=== PATIENT | female | born 1980 | race Caucasian/White ===

== ENCOUNTER 2016-09-29 19:57 | Inpatient (IN) | payer MEDICAID ==
[~2016-09-29] VITALS: Ht 157.5 cm; Wt 117.0 kg
[2016-09-29] MEDS ORDERED: DINOPROSTONE 10 MG INSERT-LEAVE FOR 12 HOURS VAGINAL ONE (21:30)
[2016-09-29] MEDS: LACTATED RINGER'S 1000 ML IV SCH (21:30)
[2016-09-29] MEDS ORDERED: NS 500 ML BOLUS IV PRN (21:30)
[2016-09-29] MEDS ORDERED: MINERAL OIL 10 ML VIAL TOPICAL PRN (21:30)
[2016-09-29] MEDS ORDERED: LACTATED RINGER'S 1000 ML BOLUS IV PRN (21:30)
[2016-09-29] MEDS ORDERED: NS 1000 ML OTHER PRN (21:30)
[2016-09-29] MEDS ORDERED: NS 1000 ML IV PRN (21:30)
[2016-09-29] MEDS ORDERED: OXYTOCIN 30 UNITS 500ML PREMIX IV ONE (21:30)
[2016-09-29] MEDS ORDERED: LIDOCAINE HCL 1% 50 ML VIAL I-DERMAL PRN (21:30)
[2016-09-29] MEDS ORDERED: LIDOCAINE HCL 1% 50 ML VIAL INFIL PRN (21:30)
[2016-09-29] MEDS ORDERED: CITRIC ACID-SODIUM CITRATE LIQ 30 ML UDC PO SCH (21:30)
[2016-09-29 22:23] VITALS: RESP 18; TEMP 98.4
[2016-09-29 22:44] LABS: BACTERIA, URINE RARE /hpf; BLOOD, URINE NEG (NEG); COMMENT (UR) CULT NOT INDICATED; CULTURE IF INDICATED CULT NOT INDICATED; GLUCOSE,URINE NEG (NEG); KETONE, URINE NEG (NEG); MUCUS URINE FEW /lpf (OCC); NITRITE,URINE NEG (NEG); SQUAMOUS EPITHELIAL CELL URINE 7 /hpf (0-5); URINE COLOR YELLOW (YELLW/STRAW)
[2016-09-29] MEDS ORDERED: ZOLPIDEM TARTRATE 5 MG TAB PO PRN (22:45)
[2016-09-29 22:49] LABS: AUTOMATED NEUTROPHIL # 9.6 TH/MM3 (1.8-7.7); BASOPHIL % 0.1 % (0.0-2.0); EOSINOPHIL # 0.1 TH/MM3 (0-0.4); EOSINOPHIL % 0.5 % (0.0-4.0); HEMATOCRIT 34.3 % (35.0-46.0); HEMO FLAGS DIFF FINAL; LYMPH % 14.9 % (9.0-44.0); LYMPHOCYTE # 1.8 TH/MM3 (1.0-4.8); MEAN CELL VOLUME 86.2 FL (80.0-100.0); MEAN CORPUSCULAR HEMOGLOBIN 29.7 PG (27.0-34.0); MEAN CORPUSCULAR HGB CONC 34.4 % (32.0-36.0); MONO % 5.7 % (0.0-8.0); NEUT % 78.8 % (16.0-70.0); PLATELET COUNT 337 TH/MM3 (150-450); RED BLOOD COUNT 3.97 MIL/MM3 (4.00-5.30); RED CELL DISTRIBUTION WIDTH 14.2 % (11.6-17.2); WHITE BLOOD COUNT 12.2 TH/MM3 (4.0-11.0)
[2016-09-29 23:00] VITALS: BP 102/75; PULSE 90
--- NOTE | 2016-09-29 23:04 | HHI.HP ---
HPI Chief Complaint iol Date Seen: September 29, 2016 Travel History International Travel<30 Days: No Contact w/Intl Traveler<30Days: No Known Affected Area: No History of Present Illness HPI Pt is a 36 yo G1 with iup at 40w1d admitted for iol. Pt desires iol as she is term and family is coming into town this weekend to help. She reports good movement, irreg contractions, no vb or lof. BPP in office today is 8/8. PNC started at 11 wk, wt gain of 57 pounds, normal 1 hr gct. Pt is morbidly obese; had growth u/s at 34w6d that measured AGA. h/o //mj use, uds negative in the third trimester. : 1 History Past Medical History Narrative Medical depression, no meds during morbid obesity Social History Alcohol Use: No Tobacco Use: No Substance Abuse: No (prior mj use) Allergies-Medications (Allergen,Severity, Reaction): Coded Allergies: No Known Allergies (Unverified , 09/29/16) Review of Systems General / Constitutional: No: Fever, Weight Gain, Chills, Other Eyes: No: Diploplia, Blurred Vision, Visual changes, Pain, Photophobia HENT: No: Headaches, Vertigo, Lightheadedness Cardiovascular: No: Irregular Rhythm, Chest Pain or Discomfort, Palpitations, Tachycardia, Syncope, Varicosities, Edema, Cyanosis Respiratory: No: Cough, Short of Breath, Other Gastrointestinal: No: Nausea, Vomiting, Diarrhea Genitourinary: No: Decreased Urinary Output, Oliguria Musculoskeletal: No: Limited ROM, Weakness, Cramping, Edema, Pain Skin: No Rash, No Itching, No Dryness, No Lumps, No Change in Pigmentation, No Change in Nails, No Alopecia, No Lesions Neurologic: No: Weakness, Dizziness, Syncope, Focal Abnormalities, Coordination Problem, Headache, Slurred Speech, Seizures Psychiatric: No: Depression, Suicidal Ideations, Homicidal Ideation Endocrine: No: Heat Intolerance, Cold Intolerance, Polydipsia, Polyuria, Other Physical Exam Vital Signs Date Time Temp Pulse Resp B/P Pulse Ox O2 Delivery O2 Flow Rate FiO2 09/29/16 22:23 98.4 18 Narrative GENERAL: Well-nourished, well-developed patient. SKIN: Warm and dry. HEAD: Normocephalic and atraumatic. EYES: No scleral icterus. No injection or drainage. ENT: No nasal drainage noted. Mucous membranes pink. Airway patent. NECK: Supple, trachea midline. No JVD. CARDIOVASCULAR: Regular rate and rhythm without murmurs, gallops, or rubs. RESPIRATORY: Breath sounds equal bilaterally. No accessory muscle use. ABDOMEN/GI: Abdomen soft, non-tender, bowel sounds present, no rebound, no guarding Gravid to [-] weeks size Fundal Height: ob GENITOURINARY: External Genitalia: intact and normal in appearance BUS glands: [-] Cervix: cl/th/high, medium consistency, posterior Dilatation: [-] Effacement: [-] Station: [-] / Presentation: [facility] Membranes: [intact Uterine Contractions: [-] FHT's: bpp 8/8 in office today Decels: [-] EXTREMITIES: No cyanosis or edema. BACK: Nontender without obvious deformity. No CVA tenderness. NEUROLOGICAL: Awake and alert. Motor and sensory grossly within normal limits. Five out of 5 muscle strength in all muscle groups. Normal speech. Data Data Vital Signs Reviewed: Yes Orders Admit To Inpatient (09/29/16 ) Diet Liquid (09/30/16 Breakfast) ^ Labor Induction (09/29/16 21:20) ^ Vaginal Insert (09/29/16 21:20) ^ Vaginal Lavage (09/29/16 21:20) Heart (09/29/16 21:20) Admit To Inpatient (09/29/16 ) Code Status (09/29/16 21:20) Vital Signs (Adult) .Per protocol (09/29/16 21:20) Heart (09/29/16 21:20) Amnioinfusion (09/29/16 21:20) Urinary Catheter Management .ONCE (09/29/16 21:20) Complete Blood Count With Diff (09/29/16 21:20) Hold Clot (09/29/16 21:20) Abo/Rh Blood Type (09/29/16 21:20) Urinalysis - C+S If Indicated (09/29/16 21:20) Resp Oxygen Non Rebreathe Mask (09/29/16 ) ^ Epidural / Intrathecal Infus (09/29/16 21:20) Dinoprostone Vag Insert (Cervidil Vag In (09/29/16 21:30) Lactated Ringer's 1000 Ml Inj (Lr 1000 M (09/29/16 21:30) Sodium Chlor 0.9% 1000 Ml Inj (Ns 1000 M (09/29/16 21:30) Lactated Ringer's 1000 Ml Inj (Lr 1000 M (09/29/16 21:30) Lactated Ringer's 1000 Ml Inj (Lr 1000 M (09/29/16 21:30) Sodium Chlorid 0.9% 500 Ml Inj (Ns 500 M (09/29/16 21:30) Sodium Chlor 0.9% 1000 Ml Inj (Ns 1000 M (09/29/16 21:30) Lidocaine 1% Inj (50 Ml) (Xylocaine 1% I (09/29/16 21:30) Citric Acid-Sodium Citrate Liq (Bicitra (09/29/16 21:30) Fentanyl Inj (Fentanyl Inj) (09/29/16 21:30) Fentanyl Inj (Fentanyl Inj) (09/29/16 21:30) Oxytocin 30 Units-500ml Premix (Pitocin (09/29/16 21:30) Lidocaine 1% Inj (50 Ml) (Xylocaine 1% I (09/29/16 21:30) Light Mineral Oil (Muri-Lube Oil) (09/29/16 21:30) Zolpidem (Ambien) (09/29/16 22:45) Labs Laboratory Tests Test 09/29/16 21:35 Urine Color YELLOW Urine Turbidity HAZY Urine pH 6.0 Urine Specific [place] 1.032 Urine Protein TRACE Urine Glucose (UA) NEG Urine Ketones NEG Urine Occult Blood NEG Urine Nitrite NEG Urine Bilirubin NEG Urine Urobilinogen LESS THAN 2.0 Urine Leukocyte Esterase NEG Urine RBC LESS THAN 1 Urine WBC 2 Urine Squamous Epithelial 7 Cells Urine Bacteria RARE Urine Mucus FEW Microscopic Urinalysis Comment CULT NOT INDICATED Blood Type O POSITIVE Blood Bank Comment Band and Hold Assessment/Plan Problem List: (1) Labor and delivery indication for care or intervention (2) Morbid obesity Assessment and Plan Pt is a 36 yo G1 with iup at 40w1d admitted for iol. Pt desires iol as she is term and family is coming into town this weekend to help 1)iol - will start with cervidil and leave in place x 12 hour. discussedi ol can be prolonged 24-36 hours, discussed possibility of need for cd if labor does not progress normally 2) morbid obesity- followed w growth u/s and bpp. 57 lb wt gain this . nl 1 hr gct 3) fetus ceph by u/s, efw 7.5-8lb 4) h/o depression- closely monitor for pp depression 5) gbs neg . Nadya Avendaño MD September 29, 2016 23:04
[2016-09-29 23:15] VITALS: RESP 18
[2016-09-30] VITALS (30 sets, daily range): BP systolic 99–144; BP diastolic 59–88; PULSE 72–95; RESP 16–20; TEMP 97.7–98.6
[2016-09-30] MEDS: LACTATED RINGER'S 1000 ML INJ 1,000 ML IV SCH ×2 (03:26→13:30)
[2016-09-30] MEDS ORDERED: ACETAMINOPHEN 325 MG TAB PO PRN (06:00)
[2016-09-30] MEDS ORDERED: ONDANSETRON HCL 4 MG/2 ML VIAL IV PUSH PRN (06:00)
--- NOTE | 2016-09-30 08:24 | PD.LABORPN ---
Subjective Subjective Lying in bed this am after cervidil placed last evening I introduced myself she is 40 2/7 weeks very significant elevated BMI and gained over 50 pounds in gestation no PTL, GDM or HTN no cramping, leaking or bleeding GFM Objective Vital Signs Vital Signs Date Time Temp Pulse Resp B/P Pulse Ox O2 Delivery O2 Flow Rate FiO2 09/30/16 07:37 97.9 18 09/30/16 07:36 82 109/69 09/30/16 05:30 97.9 18 09/30/16 05:21 72 109/71 09/30/16 03:26 18 09/30/16 03:21 74 103/88 Objective large belly and cannot do leopolds cervix long/closed/posterior/high and firm States EFW was 7 1/2 in office minimal pedal edema Assessment/Plan Problem List: (1) Labor and delivery indication for care or intervention (2) Morbid obesity Assessment and Plan reviewed in detail her status and possible course. Will try cytotec oral every 4 hours today while using birthing ball. Reassess tonight reviewed possibility of lack of descent and need for section reviewed increase risk with BMI reassured about baby status at this time (category 1 strip) Will review chart (never met) allow breakfast, shower and then cytotec and birthing ball Maria Alejandra Payan MD September 30, 2016 08:24
[2016-09-30] MEDS ORDERED: PILL SPLITTER OTHER PRN (08:30)
[2016-09-30] MEDS ORDERED: MISOPROSTOL 100 MCG TAB PO ONE ×3 (08:30→17:00)
[2016-09-30] MEDS: MISOPROSTOL 100 MCG TAB PO SCH ×4 (09:26→22:15)
[2016-09-30] MEDS: LACTATED RINGER'S 1000 ML IV SCH (22:15)
[2016-10-01] VITALS (17 sets, daily range): BP systolic 100–122; BP diastolic 59–76; PULSE 68–82; RESP 16–20; TEMP 97.6–98.5; O2SAT 99–100
[2016-10-01] MEDS: MISOPROSTOL 100 MCG TAB PO SCH (02:05)
[2016-10-01] MEDS: LACTATED RINGER'S 1000 ML IV SCH (05:30)
[2016-10-01] MEDS: LACTATED RINGER'S 1000 ML INJ 1,000 ML IV SCH (05:30)
[2016-10-01] MEDS ORDERED: MISOPROSTOL 100 MCG TAB PO SCH (06:00)
[2016-10-01] MEDS ORDERED: LACTATED RINGER'S 1000 ML INJ 1,000 ML IV ONE (08:22)
--- NOTE | 2016-10-01 08:22 | PD.LABORPN ---
Subjective Subjective Quiet night with no UCs good movement no leaking some brownish discharge Objective Vital Signs Vital Signs Date Time Temp Pulse Resp B/P Pulse Ox O2 Delivery O2 Flow Rate FiO2 10/01/16 07:03 97.8 10/01/16 07:02 76 118/73 10/01/16 07:01 20 10/01/16 03:15 98.2 18 10/01/16 03:12 71 117/69 10/01/16 01:15 98.3 16 10/01/16 01:01 71 100/61 Objective difficult to trace unless lies on right side but appears category 1 cervix long/posterior/still firm I can force one finger into os with significant discomfort I can tell vertex and -3 but applied. Thighs are quite large and practice lithotomy position reveals minimal space to work with--risk of soft tissue dystocia must be considered. Assessment/Plan Problem List: (1) Labor and delivery indication for care or intervention (2) Morbid obesity Assessment and Plan 40 1/2 week iup brought in 36 hours ago for cervical ripening with no changes using both cervidil and cytotec. Unable to do leopolds but patient says office estimates 7 1/2 pounds. significant obesity that will complicate both vaginal and operative delivery-- at this point there is no descent and the cervix is unfavorable. Discussed section on ideal circumstances as opposed to in the middle of the night or shoulder dystocia at an odd hour. She agrees. Issues of her BMI anticipated to complicate for the section and post --at risk for difficult infant extraction, bleeding, infection, DVT patient and family made aware. Maria Alejandra Payan MD October 01, 2016 08:22
[2016-10-01] MEDS ORDERED: LACTATED RINGER'S 1000 ML INJ 1,000 ML IV SCH ×2 (09:00→14:30)
[2016-10-01] MEDS ORDERED: OXYTOCIN 10 UNIT/ML AMP ONE (09:18)
[2016-10-01] MEDS ORDERED: SODIUM CHLORIDE 0.9% FLUSH 10 ML FLUSH IV FLUSH PRN (09:30)
[2016-10-01] MEDS ORDERED: SIMETHICONE 80 MG CHEWABLE TAB PO PRN (09:30)
[2016-10-01] MEDS ORDERED: ceFAZolin 2 GM PREMIX 50 ML IV SCH (09:30)
[2016-10-01] MEDS ORDERED: OXYTOCIN 30 UNITS-500ML PREMIX 500 ML IV ONE (09:30)
[2016-10-01] MEDS ORDERED: EPIDURAL-NO SYSTEMIC NARCOTICS PRN (09:35)
[2016-10-01] MEDS ORDERED: EPIDURAL-NALOXONE HCL 0.4 MG/ML AMP IV PRN (09:35)
[2016-10-01] MEDS ORDERED: EPIDURAL-DIPHENHYDRAMINE HCL 50 MG/ML VIAL IV PUSH PRN (09:35)
[2016-10-01] MEDS ORDERED: EPIDURAL-DIPHENHYDRAMINE HCL 50 MG CAP PO PRN (09:35)
[2016-10-01] MEDS ORDERED: EPIDURAL-DO NOT ADMINISTER ANTICOAGULANTS PRN (09:35)
[2016-10-01] MEDS ORDERED: DICLOFENAC SODIUM 37.5 MG/ML VIAL IV PUSH ONE (09:59)
[2016-10-01] MEDS ORDERED: CITRIC ACID-SODIUM CITRATE LIQ 30 ML UDC PO SCH (10:00)
--- NOTE | 2016-10-01 10:41 | PD.OB.DELI ---
Procedure Note Section Procedure Pre Op Diagnosis term IUP, trial of labor with no cervical change or descent BMI ~ 50 Post Op Diagnosis: Post Op Diagnosis same delivered, ROT (deep transverse arrest) Performed by Maria Alejandra Payan Procedure: Primary Low Transverse Sec Indication for delivery: malposition Informed consent obtained: For anesthesia, For procedure Confirmed correct: Patient, Procedure, Site, Time-out taken Anesthesia: Spinal Medication prior to procedure: As documented in eMAR Monitoring during procedure: Blood pressure monitoring Urinary catheter: Inserted using sterile technique, To dependent drainage Sterile preparation: Duraprep, In usual fashion, With 2% chlorexidine ( Hibiclens) Operative Features Skin Incision: Pfannenstiel Uterine Incision: Low transverse w/knife / blunt ext Membranes Ruptured: Artificially Presentation: Vertex Delivery of infant: Assisted : Male One Minute : 8 Five Minute : 9 Weight: 6 3 Status of infant: Viable, Cord blood, Umbilical cord, Nursery present Placenta delivered: Intact, Other (to mimedex) Medications: Antibiotics, Oxytocin Estimated blood loss: 800 Procedure tolerated: Well Maternal Condition: Stable Condition: Stable (dictated) Maria Alejandra Payan MD October 01, 2016 10:41
[2016-10-01] MEDS ORDERED: MORPHINE SULFATE PF 5 MG/10 ML VIAL ONE (11:00)
[2016-10-01] MEDS ORDERED: ONDANSETRON HCL 4 MG/2 ML VIAL ONE (11:00)
[2016-10-01] MEDS ORDERED: OXYTOCIN 30 UNITS-500ML PREMIX 500 ML ONE (11:02)
[2016-10-01] MEDS ORDERED: DICLOFENAC SODIUM 37.5 MG/ML VIAL IV PUSH SCH (13:00)
[2016-10-01] MEDS: DICLOFENAC SODIUM 37.5 MG/ML VIAL IV PUSH SCH (17:43)
[2016-10-01] MEDS: ENOXAPARIN SODIUM 40 MG/0.4 ML SYRINGE SQ SCH (17:43)
[2016-10-01] MEDS ORDERED: OXYTOCIN 30 UNITS-500ML PREMIX 500 ML IV PRN (19:30)
[2016-10-01] MEDS ORDERED: SODIUM CHLORIDE 0.9% FLUSH 10 ML FLUSH IV FLUSH SCH (21:00)
[2016-10-02 00:30] VITALS: BP 94/61; PULSE 83; RESP 18; TEMP 98.6
[2016-10-02] MEDS: DICLOFENAC SODIUM 37.5 MG/ML VIAL IV PUSH SCH (01:45)
[2016-10-02 05:10] VITALS: BP 89/60; PULSE 83; RESP 18; TEMP 97.6
--- NOTE | 2016-10-02 09:28 | HHI.OB ---
Subjective Post Operative Day: 1 Remarks up in chair ready for pain meds ambulating well discussed lovenox for duration of hospitalization Objective Vitals/I&O Vital Signs Date Time Temp Pulse Resp B/P Pulse Ox O2 Delivery O2 Flow Rate FiO2 10/02/16 05:10 97.6 18 10/02/16 05:10 83 89/60 10/02/16 00:30 98.6 83 18 94/61 10/01/16 19:30 98.5 18 10/01/16 19:30 80 105/62 10/01/16 16:10 82 18 106/63 10/01/16 12:33 97.8 75 18 107/71 10/01/16 11:53 97.6 10/01/16 11:40 18 99 10/01/16 11:40 68 114/59 10/01/16 11:25 81 20 116/76 100 10/01/16 11:10 75 20 122/74 100 10/01/16 10:56 97.7 80 20 108/75 100 10/01/16 10:56 97.7 Result Diagram: 09/29/162134 Objective Remarks GENERAL: Well-nourished, well-developed patient. CARDIOVASCULAR: Regular rate and rhythm without murmurs, gallops, or rubs. RESPIRATORY: Breath sounds equal bilaterally. No accessory muscle use. ABDOMEN/GI: Abdomen soft, non-tender, bowel sounds present. bandage Clean, dry and intact. Fundus: Firm, non-tender at umbilicus. GENITOURINARY: Light to moderate bleeding. EXTREMITIES: No cyanosis or edema, non-tender, without signs of DVT. Medications and IVs Current Medications Medications (Trade) Dose Ordered Sig/Yakov Route Start Time Stop Time Status Last Admin Sodium Chloride 1,000 ml @ 0 mls/hr UNSCH PRN OTHER 09/29/16 21:30 Lactated Ringer's 1,000 ml @ 3,000 mls/hr BOLUS PRN IV 09/29/16 21:30 Sodium Chloride 500 ml @ 1,000 mls/hr BOLUS PRN IV 09/29/16 21:30 (NS 1000 ml Inj) 1,000 ml @ 100 mls/hr Q10H PRN IV 09/29/16 21:30 (fentaNYL INJ) 50 mcg Q1H PRN IV PUSH 09/29/16 21:30 (fentaNYL INJ) 100 mcg Q1H PRN IV PUSH 09/29/16 21:30 (Muri-Lube Oil) 10 ml UNSCH PRN TOPICAL 09/29/16 21:30 (Ambien) 5 mg HS PRN PO 09/29/16 22:45 09/29/16 22:40 (Zofran Inj) 4 mg Q6H PRN IV PUSH 09/30/16 06:00 10/01/16 16:47 (Tylenol) 650 mg Q4H PRN PO 09/30/16 06:00 Miscellaneous 1 ea 1 ea UNSCH PRN OTHER 09/30/16 08:30 Lactated Ringer's 1,000 ml @ 150 mls/hr Q6H40M IV 10/01/16 09:00 (Lr 1000 ml Inj) 1,000 ml @ 100 mls/hr Q10H IV 10/01/16 14:30 10/02/16 10:29 (NS Flush) 2 ml BID IV FLUSH 10/01/16 21:00 (NS Flush) 2 ml UNSCH PRN IV FLUSH 10/01/16 09:30 (Mylicon Chew) 80 mg QID PRN PO 10/01/16 09:30 (Lovenox Inj) 40 mg Q24H SQ 10/01/16 18:00 10/01/16 17:43 Miscellaneous Information NO SYSTEMIC NARCOTICS TO BE GIVEN FO... UNSCH PRN .XX 10/01/16 09:35 10/02/16 09:34 (Narcan Inj) 0.4 mg UNSCH PRN IV 10/01/16 09:35 10/02/16 09:34 (Benadryl Inj) 25 mg Q6H PRN IV PUSH 10/01/16 09:35 10/02/16 09:34 (Benadryl) 50 mg Q6H PRN PO 10/01/16 09:35 10/02/16 09:34 10/01/16 23:27 Miscellaneous Information ALL NURSING DEPARTMENTS UNSCH PRN .XX 10/01/16 09:35 10/02/16 09:34 Assessment/Plan Problem List: (1) Labor and delivery indication for care or intervention (2) Morbid obesity Assessment and Plan POD 1 s/p primary section. Cervix did not respond to 2 full days of ripening and baby never engaged. doing well on lovenox . Maria Alejandra Payan MD October 02, 2016 09:28
[2016-10-02] MEDS ORDERED: oxyCODONE/ACETAMINOPHEN 5 MG/325 MG TAB PO PRN (10:00)
[2016-10-02] MEDS: IBUPROFEN 600 MG TAB PO PRN ×2 (10:09→18:43)
[2016-10-02] MEDS: oxyCODONE/ACETAMINOPHEN 5 MG/325 MG TAB PO PRN ×3 (10:09→23:14)
--- NOTE | 2016-10-02 11:26 | MP ---
cc: JOSE GARNER DATE OF : 84 DATE OF SURGERY: 10/01/2016 PREOPERATIVE DIAGNOSIS: 40 plus week intrauterine with trial of induction, BMI 50 and lack of descent or cervical ripening. POSTOPERATIVE DIAGNOSIS: 40 plus week intrauterine with trial of induction, BMI 50 and lack of descent or cervical ripening. Baby in occiput transverse position and out of the pelvis. PROCEDURE Primary low transverse segment section. ANESTHESIA Spinal with Duramorph FINDINGS A living male was delivered from [facility] without Apgars 8 at 1 and 9 at 5, weighing 6 pounds 3 ounces. Posterior placenta was removed without difficulty and sent to [facility]. ESTIMATED BLOOD LOSS: A little higher than average, about 800 due to bleeding from subcutaneous vessels but the actual uterus was not a source of intraoperative bleeding. COUNTS: Sponge, instrument, needle count were correct. Mom and baby tolerated the procedure well. DESCRIPTION OF PROCEDURE: The patient was taken to the operating room after detailed discussion on risks, benefits, expectations and alternatives. We were discussing continued attempts to soften the cervix, cervical ripening and Pitocin for labor versus proceeding with section as two days of cervical ripening had not changed the cervix. The decision was made to proceed. She was taken to the operating room, administered the spinal with Duramorph, placed in dorsal supine position with weight off the vena cava. She had sequential on. Chris catheter was placed. She was given two grams of Ancef. The pannus was elevated out of the incisional site using the plastic specifically designed for retraction of this pannus. When she was prepped and draped and a time out was performed, analgesia was assured, a Pfannenstiel incision was made to slightly above the crease, this was taken down to the rectus fascia. Very large vessels were encountered throughout the subcutaneous and these were either tied off or cauterized. The fascia was incised in an elliptical fashion and taken off the rectus muscles superiorly and inferiorly. She had a mild rectus diastasis. This was in midline. The parietal peritoneum was entered and a bladder flap was created off the lower uterine segment. An incision was made into the intrauterine cavity and bluntly extended in a vertical fashion. The 's head was easily delivered and the shoulders and then the cord was clamped after 45 seconds, and the was handed to the neonatology team in attending. Cord blood was obtained and then the placenta was delivered manually intact. It was possible to exteriorize the uterus which was very thick but did not have much bleeding and was closed with chromic in a running interlocking fashion with a second horizontal imbricating stitch, and was replaced in the pelvic cavity with significant irrigation performed. Then the rectus muscles and peritoneum were reapproximated to avoid rectus diastasis and the fascia was closed with one Vicryl. Subcutaneous layer was closed in several layers and then the skin was closed with 4-0 Vicryl on a Rob needle. Estimated blood loss was 800 cc. Sponge, instrument, needle count were correct. Jose Garner MD P[facility]/YIFAN /9:25 AM /10:35 AM
[2016-10-02] MEDS: ENOXAPARIN SODIUM 40 MG/0.4 ML SYRINGE SQ SCH (18:43)
[2016-10-03] MEDS: IBUPROFEN 600 MG TAB PO PRN (04:39)
[2016-10-03] MEDS: oxyCODONE/ACETAMINOPHEN 5 MG/325 MG TAB PO PRN ×2 (04:39→08:40)
[2016-10-03 07:47] VITALS: BP 107/66; PULSE 77; RESP 18; TEMP 98
--- NOTE | 2016-10-03 08:19 | HHI.OB ---
Subjective Post Operative Day: 2 Remarks POD# 2, Doing well, attempting to breast feed without issue. Desires to go home, Baby will not be circumcised. Objective Result Diagram: 09/29/162134 Objective Remarks GENERAL: Well-nourished, well-developed patient. CARDIOVASCULAR: Regular rate and rhythm without murmurs, gallops, or rubs. RESPIRATORY: Breath sounds equal bilaterally. No accessory muscle use. ABDOMEN/GI: Abdomen soft, non-tender, bowel sounds present. bandage Clean, dry and intact. Fundus: Firm, non-tender at umbilicus. GENITOURINARY: Light to moderate bleeding. EXTREMITIES: No cyanosis or edema, non-tender, without signs of DVT. Medications and IVs Current Medications Medications (Trade) Dose Ordered Sig/Yakov Route Start Time Stop Time Status Last Admin Sodium Chloride 1,000 ml @ 0 mls/hr UNSCH PRN OTHER 09/29/16 21:30 Lactated Ringer's 1,000 ml @ 3,000 mls/hr BOLUS PRN IV 09/29/16 21:30 Sodium Chloride 500 ml @ 1,000 mls/hr BOLUS PRN IV 09/29/16 21:30 (NS 1000 ml Inj) 1,000 ml @ 100 mls/hr Q10H PRN IV 09/29/16 21:30 (fentaNYL INJ) 50 mcg Q1H PRN IV PUSH 09/29/16 21:30 (fentaNYL INJ) 100 mcg Q1H PRN IV PUSH 09/29/16 21:30 (Muri-Lube Oil) 10 ml UNSCH PRN TOPICAL 09/29/16 21:30 (Ambien) 5 mg HS PRN PO 09/29/16 22:45 09/29/16 22:40 (Zofran Inj) 4 mg Q6H PRN IV PUSH 09/30/16 06:00 10/01/16 16:47 (Tylenol) 650 mg Q4H PRN PO 09/30/16 06:00 Miscellaneous 1 ea 1 ea UNSCH PRN OTHER 09/30/16 08:30 (Lr 1000 ml Inj) 1,000 ml @ 150 mls/hr Q6H40M IV 10/01/16 09:00 (NS Flush) 2 ml BID IV FLUSH 10/01/16 21:00 (NS Flush) 2 ml UNSCH PRN IV FLUSH 10/01/16 09:30 (Mylicon Chew) 80 mg QID PRN PO 10/01/16 09:30 (Lovenox Inj) 40 mg Q24H SQ 10/01/16 18:00 10/02/16 18:43 (Percocet 5-325 Mg) 1 tab Q4H PRN PO 10/02/16 10:00 10/03/16 04:39 (Percocet 5-325 Mg) 2 tab Q6H PRN PO 10/02/16 10:00 (Motrin) 600 mg Q8H PRN PO 10/02/16 10:00 10/03/16 04:39 Assessment/Plan Problem List: (1) Labor and delivery indication for care or intervention (2) Morbid obesity Assessment and Plan POD 2 s/p primary section. . Stable for discharge. RTO in 1 week . Discharge Planning Routine, return to office in one week Attending Attestation seen by Gregorio Manning MD October 03, 2016 08:19
[2016-10-03] MEDS ORDERED: NORC5TAB PO (08:21)
[2016-10-03] MEDS ORDERED: IBUP-232 PO (08:21)
--- NOTE | 2016-10-03 08:22 | HHI.DS ---
Admission Date September 29, 2016 at 20:20 Admitting Diagnosis Diagnosis: : Primary : Male Brief History Pt is a 36 yo G1 with iup at 40w1d admitted for iol. Pt desires iol as she is term and family is coming into town this weekend to help. She reports good movement, irreg contractions, no vb or lof. BPP in office today is 8/8. PNC started at 11 wk, wt gain of 57 pounds, normal 1 hr gct. Pt is morbidly obese; had growth u/s at 34w6d that measured AGA. h/o //mj use, uds negative in the third trimester. Pt Condition on Discharge: Good Discharge Disposition: Discharge Home Discharge Instructions Diet Instructions: As Tolerated, No Restrictions Activities You Can Perform: Shower Only-No Bath Activities to Avoid: Prolonged Standing, Strenuous Activity, Driving, Sexual Activity Gregorio Quinones MD October 03, 2016 08:22
== END 2016-10-03 11:10 | disposition home or self-care (01) | DRG 765 ==
LOC: HOBED 19:57 → H2EB 20:20 → H1EA 10-01 12:10
PROVIDERS: ADMIT Obstetrics & Gynecology; ATTEND Obstetrics & Gynecology
PROC: 3E0P7GC Introduction of Other Therapeutic Substance into Female Reproductive, Via Natural or Artificial Opening (ICD-10-PCS; 2016-09-29)
PROC: 10D00Z1 Extraction of Products of Conception, Low, Open Approach (ICD-10-PCS; principal; 2016-10-01)
DX: O75.89 Other specified complications of labor and delivery (principal); Z68.42 Body mass index [BMI] 45.0-49.9, adult; O61.0 Failed medical induction of labor; O99.214 Obesity complicating childbirth; E66.01 Morbid (severe) obesity due to excess calories; O32.4XX0 Maternal care for high head at term, not applicable or unspecified; Z3A.40 40 weeks gestation of pregnancy; Z37.0 Single live birth
CPT/HCPCS: 76937; 81001; 85025; 86900; 86901; J0690; J1130; J1650; J2274; J2405; J2590; J7120; Q0163